=== PATIENT | male | born 1990 | race Caucasian/White ===

== ENCOUNTER 2016-09-17 07:09 | Emergency (ER) | payer OTHER ==
[2016-09-17] MEDS ORDERED: predniSONE 20 MG Tab PO ONE (07:17)
[2016-09-17] MEDS ORDERED: Loratadine 10 MG Tab PO ONE (07:18)
[2016-09-17] MEDS ORDERED: Famotidine 20 MG Tab PO ONE (07:18)
--- NOTE | 2016-09-17 08:11 | EDM.PDOC ---
ED HISTORY OF PRESENT ILLNESS - General Chief Complaint: Respiratory Problem Stated Complaint: SOB Time Seen by Provider: 09/17/16 07:14 Source of Information: Reports: Patient History Limitations: Reports: No limitations - History of Present Illness INITIAL COMMENTS - FREE TEXT/NARRATIVE: The patient presents with shortness of breath. This started about 2 hours ago while he was sitting down watching TV. He feels like his throat is swollen. He denies fever, chills, cough, congestion or runny nose. His throat may hurt but he feels like it is swollen. He has not eaten any foods that he may have reacted to. He has no allergies. He has no rash. He has no chest pain, abdominal pain, nausea or vomiting. Timing/Duration: Reports: Hour(s): (2) Severity: moderate Improves with: Reports: None Worsens with: Reports: None Associated Symptoms (General): Reports: shortness of breath. Denies: chest pain , cough, fever/chills, nausea/vomiting - Related Data Allergies/ADRs: Allergies Allergy/AdvReac Type Severity Reaction Status Date / Time No Known Allergies Allergy Verified 09/17/16 07:17 Home Meds: Home Meds Penicillin V Potassium [IJD: Penicillin V Potassium] 500 mg PO .EVERY 6 HOURS # 40 tab 09/17/16 [Rx] traMADol [Ultram] 50 - 100 mg PO Q6H PRN #20 tablet 09/17/16 [Rx] Past Medical History - Past Health History Medical/Surgical History: Denies Medical/Surgical History Social & Family History - Tobacco Use Smoking Status *Q: Never Smoker Years of Tobacco use: 4 Packs/Tins Daily: 1 Second Hand Smoke Exposure: No - Caffeine Use Caffeine Use: Reports: None - Recreational Drug Use Recreational Drug Use: No ED ROS GENERAL - Review of Systems Review Of Systems: See Below Constitutional: Reports: no symptoms HEENT: Reports: Throat pain, Throat swelling Respiratory: Reports: shortness of breath Cardiovascular: Reports: No symptoms Endocrine: Reports: no symptoms GI/Abdominal: Reports: No symptoms : Reports: no symptoms Musculoskeletal: Reports: no symptoms Skin: Reports: no symptoms Neurological: Reports: no symptoms ED EXAM, GENERAL - Physical Exam Exam: See Below Exam Limited By: No limitations General Appearance: alert, no apparent distress Ears: normal external exam Nose: normal inspection Throat/Mouth: Other (Mild erythema and mild edema of the oropharynx) Head: atraumatic, normocephalic Neck: normal inspection Respiratory/Chest: no respiratory distress, lungs clear, normal breath sounds Cardiovascular: regular rate, rhythm, no edema, no murmur GI/Abdominal: soft, non tender, no organomegaly Back Exam: normal inspection Course - Vital Signs Last Recorded V/S: Last Vital Signs Temp 97.8 F 09/17/16 07:15 Pulse 78 09/17/16 07:15 Resp 16 09/17/16 07:15 BP 142/86 H 09/17/16 07:15 Pulse Ox 96 09/17/16 07:15 - Orders/Labs/Meds Orders: Active Orders 24 hr Category Date Time Status STREP SCRN A RAPID W CULT CONF [RM] Stat Lab 09/17/16 07:19 Received Meds: Medications Discontinued Medications Generic Name Dose Route Start Last Admin Trade Name Freq PRN Reason Stop Dose Admin Famotidine 20 mg 09/17/16 07:18 09/17/16 07:25 Pepcid PO 09/17/16 07:19 20 mg ONETIME ONE Administration Loratadine 10 mg 09/17/16 07:18 09/17/16 07:25 Claritin PO 09/17/16 07:19 10 mg ONETIME ONE Administration Prednisone 40 mg 09/17/16 07:17 09/17/16 07:25 Prednisone PO 09/17/16 07:18 40 mg ONETIME ONE Administration - Re-Assessments/Exams Free Text/Narrative Re-Assessment/Exam: 09/17/16 08:10 I ordered a rapid strep that was negative, prednisone 40mg by mouth, claritin 10mg and some pepcid 20mg by mouth. 09/17/16 08:23 He still feels about the same. His strep is negative. He does have a bad tooth in the left upper jaw line. I will get him on an antibiotic for that and something for pain. Departure - Departure Time of Disposition: 08:25 Disposition: Home, Self-Care 01 Condition: good Clinical Impression: Pain, dental, Dental abscess, Edema of throat Prescriptions: Penicillin V Potassium [IJD: Penicillin V Potassium] 500 mg PO .EVERY 6 HOURS # 40 tab traMADol [Ultram] 50 - 100 mg PO Q6H PRN #20 tablet PRN Reason: Pain Referrals: Praveena Zuluaga [Physician] - 1 Week (If not better) Forms: ED Department Discharge Additional Instructions: Take claritin 10mg daily for 1 week and pepcid 20mg daily for 1 week. Take the penicillin VK for your tooth and use the ultram as needed for pain. Please return if you are worse. Follow up with Dr Zuluaga if not better in 1 week. - My Orders Last 24 Hours: My Active Orders 09/17/16 07:19 STREP SCRN A RAPID W CULT CONF [RM] Stat - Assessment/Plan Last 24 Hours: My Active Orders 09/17/16 07:19 STREP SCRN A RAPID W CULT CONF [RM] Stat
[2016-09-17 08:38] VITALS: BP 122/76
== END 2016-09-17 08:35 | disposition home or self-care (01) ==
LOC: JD.ED 07:09
DX: K04.7 Periapical abscess without sinus (principal); J39.2 Other diseases of pharynx; Z79.899 Other long term (current) drug therapy
CPT/HCPCS: 87081; 87430; 99283; A9270

== ENCOUNTER 2016-12-29 07:15 | Emergency (ER) | payer BC, OTHER ==
[2016-12-29] MEDS ORDERED: Sodium Chloride 0.9% 10 ML Syringe FLUSH PRN (07:26)
[2016-12-29] MEDS ORDERED: Aspirin 81 MG Tab.Chew PO ONE (07:26)
--- NOTE | 2016-12-29 09:31 | EDM.PDOC ---
ED HPI GENERAL MEDICAL PROBLEM - General Chief Complaint: Drug or Alcohol Abuse Stated Complaint: CHEST PAIN/RAPID HEART BEAT Time Seen by Provider: 12/29/16 07:18 Source of Information: Reports: Patient History Limitations: Reports: No Limitations - History of Present Illness INITIAL COMMENTS - FREE TEXT/NARRATIVE: The patient presents with chest pain after taking cocaine. He took the cocaine 2 hours before arrival and the pain started shortly after that. He also feels like his heart is racing. He has used in the past but it was a few years ago. He never had troubles like this before. He has a week off and partied most of the night. He does admit to drinking also. He has no shortness of breath. He has no nausea, vomiting or abdominal pain. He has no health problems such as diabetes, HTN, or hypercholesterolemia. He quit smoking a few years ago. Onset: Sudden Duration: Hour(s): Location: Reports: Chest Quality: Reports: Sharp Severity: Moderate Improves with: Reports: None Worsens with: Reports: None Context: Reports: Activity (He was up all night and took some cocaine) Associated Symptoms: Reports: Chest Pain, Shortness of Breath. Denies: Cough, Fever/Chills, Nausea/Vomiting - Related Data Allergies Allergy/AdvReac Type Severity Reaction Status Date / Time No Known Allergies Allergy Verified 09/17/16 07:17 Past Medical History - Past Health History Medical/Surgical History: Denies Medical/Surgical History Social & Family History - Tobacco Use Smoking Status *Q: Never Smoker Years of Tobacco use: 4 Packs/Tins Daily: 1 Second Hand Smoke Exposure: No - Caffeine Use Caffeine Use: Reports: Soda - Recreational Drug Use Recreational Drug Use: Yes Drug Use in Last 12 Months: Yes Recreational Drug Type: Reports: Cocaine Recreational Drug Use Frequency: Rarely ED ROS GENERAL - Review of Systems Review Of Systems: See Below Constitutional: Reports: No Symptoms HEENT: Reports: No Symptoms Respiratory: Reports: No Symptoms Cardiovascular: Reports: Chest Pain Endocrine: Reports: No Symptoms GI/Abdominal: Reports: No Symptoms : Reports: No Symptoms Musculoskeletal: Reports: No Symptoms ED EXAM, BEHAVIORAL HEALTH - Physical Exam Exam: See Below Exam Limited By: No Limitations General Appearance: Alert, No Apparent Distress Ears: Normal External Exam Nose: Normal Inspection Head: Atraumatic, Normocephalic Neck: Normal Inspection Respiratory/Chest: No Respiratory Distress, Lungs Clear, Normal Breath Sounds Cardiovascular: Regular Rate, Rhythm, No Edema, No Murmur GI/Abdominal: Soft, Non-Tender, No Organomegaly Back Exam: Normal Inspection Extremities: Normal Inspection Neurological: Alert, No Motor/Sensory Deficits, Oriented x 3 EKG INTERPRETATION EKG Date: 12/29/16 Time: 07:33 Rhythm: other (Sinus tachycardia) Rate (beats/min): 109 [place]: normal P-wave: present QRS: normal ST-T: normal QT: normal COURSE, BEHAVIORAL HEALTH COMP - Course Vital Signs: Last Vital Signs Temp 98.2 F 12/29/16 07:20 Pulse 126 H 12/29/16 07:20 Resp 22 H 12/29/16 07:20 BP 148/90 H 12/29/16 07:20 Pulse Ox 100 12/29/16 07:20 Orders, Labs, Meds: Active Orders 24 hr Category Date Time Status Cardiac Monitoring [RC] . DIRECTED Care 12/29/16 07:27 Active EKG Documentation Completion [RC] STAT Care 12/29/16 07:27 Active Peripheral IV Care [RC] . DIRECTED Care 12/29/16 07:27 Active Chest 2V [CR] Stat Exams 12/29/16 07:27 Taken Sodium Chloride 0.9% [Saline Flush] Med 12/29/16 07:26 Active 10 ml FLUSH ASDIRECTED PRN Peripheral IV Insertion Adult [OM.PC] Stat Oth 12/29/16 07:26 Ordered Medication Orders Sodium Chloride (Saline Flush) 10 ml FLUSH ASDIRECTED PRN PRN Reason: Keep Vein Open Last Admin: 12/29/16 07:45 Dose: 10 ml Laboratory Tests 12/29/16 12/29/16 12/29/16 Range/Units 07:30 07:59 07:59 WBC 14.16 H (4.23-9.07) K/mm3 RBC 5.28 (4.63-6.08) M/mm3 Hgb 16.0 (13.7-17.5) gm/L Hct 45.9 (40.1-51.0) % MCV 86.9 (79.0-92.2) fl MCH 30.3 (25.7-32.2) pg MCHC 34.9 (32.2-35.5) g/dl RDW Std Deviation 39.6 (35.1-43.9) fL Plt Count 185 (163-337) K/mm3 MPV 10.0 (9.4-12.3) fl Neut % (Auto) 84.1 H (34.0-67.9) % Lymph % (Auto) 10.7 L (21.8-53.1) % [place] % (Auto) 4.9 L (5.3-12.2) % Eos % (Auto) 0.1 L (0.8-7.0) Baso % (Auto) 0.1 (0.1-1.2) % Neut # (Auto) 11.90 H (1.78-5.38) K/mm3 Lymph # (Auto) 1.51 (1.32-3.57) K/mm3 [place] # (Auto) 0.70 (0.30-0.82) K/mm3 Eos # (Auto) 0.01 L (0.04-0.54) K/mm3 Baso # (Auto) 0.02 (0.01-0.08) K/mm3 Sodium 140 (136-145) mEq/L Potassium 3.6 (3.5-5.1) mEq/L Chloride 103 (98-107) mEq/L Carbon Dioxide 24 (21-32) mEq/L Anion Gap 16.6 H (5-15) BUN 15 (7-18) mg/dL Creatinine 1.0 (0.7-1.3) mg/dL Est Cr Clr Drug Dosing TNP Estimated GFR (MDRD) > 60 (>60) mL/min BUN/Creatinine Ratio 15.0 (14-18) Glucose 97 (74-106) mg/dL Calcium 9.3 (8.5-10.1) mg/dL Total Bilirubin 1.1 H (0.2-1.0) mg/dL AST 15 (15-37) U/L ALT 14 L (16-63) U/L Alkaline Phosphatase 82 (46-116) U/L Troponin I < 0.017 (0.00-0.056) ng/mL Total Protein 8.9 H (6.4-8.2) g/dl Albumin 5.1 H (3.4-5.0) g/dl Globulin 3.8 gm/dL Albumin/Globulin Ratio 1.3 (1-2) Urine Opiates Screen Negative (NEGATIVE) Ur Buprenorphine Scrn Negative (NEGATIVE) Ur Oxycodone Screen Negative (NEGATIVE) Urine Methadone Screen Negative (NEGATIVE) Ur Propoxyphene Screen Negative (NEGATIVE) Ur Barbiturates Screen Negative (NEGATIVE) Ur Tricyclics Screen Negative (NEGATIVE) Ur Phencyclidine Scrn Negative (NEGATIVE) Ur Amphetamine Screen Negative (NEGATIVE) U Methamphetamines Scrn Negative (NEGATIVE) U Benzodiazepines Scrn Negative (NEGATIVE) U Cocaine Metab Screen Presumptive positive H (NEGATIVE) U Marijuana (THC) Screen Negative (NEGATIVE) Ethyl Alcohol 0.02 (0.00) gm% Medications Generic Name Dose Route Start Last Admin Trade Name Freq PRN Reason Stop Dose Admin Sodium Chloride 10 ml 12/29/16 07:26 12/29/16 07:45 Saline Flush FLUSH 10 ml ASDIRECTED PRN Administration Keep Vein Open Discontinued Medications Generic Name Dose Route Start Last Admin Trade Name Freq PRN Reason Stop Dose Admin Aspirin 324 mg 12/29/16 07:26 12/29/16 07:45 Aspirin PO 12/29/16 07:27 324 mg ONETIME ONE Administration Re-Assessment/Re-Exam: I ordered an IV saline lock, EKG, CXR, labs and aspirin. His EKG shows a sinus tachycardia with no changes. His WBC was elevated at 14.16. His anion gap was slightly elevated at 16.6. His troponin was negative. His CXR looks good. He feels better. It appears to be cocaine chest pain. I will discharge him home. Departure - Departure Time of Disposition: 09:35 Disposition: Home, Self-Care 01 Condition: good Clinical Impression: Drug abuse Chest pain Qualifiers: Chest pain type: unspecified Qualified Code(s): R07.9 - Chest pain, unspecified - Discharge Information Referrals: Shari Crane PA [Physician [employer]] - 1 Week Additional Instructions: Drink plenty of fluids. Do not do cocaine. Do not take any stimulants like nicotine or caffeine. Rest today. Please return if you are worse. - My Orders Last 24 Hours: My Active Orders 12/29/16 07:26 Sodium Chloride 0.9% [Saline Flush] 10 ml FLUSH ASDIRECTED PRN Peripheral IV Insertion Adult [OM.PC] Stat 12/29/16 07:27 Cardiac Monitoring [RC] . DIRECTED EKG Documentation Completion [RC] STAT Peripheral IV Care [RC] . DIRECTED Chest 2V [CR] Stat - Assessment/Plan Last 24 Hours: My Active Orders 12/29/16 07:26 Sodium Chloride 0.9% [Saline Flush] 10 ml FLUSH ASDIRECTED PRN Peripheral IV Insertion Adult [OM.PC] Stat 12/29/16 07:27 Cardiac Monitoring [RC] . DIRECTED EKG Documentation Completion [RC] STAT Peripheral IV Care [RC] . DIRECTED Chest 2V [CR] Stat
[2016-12-29 10:08] VITALS: BP 123/73
--- NOTE | 2016-12-31 15:46 | CR ---
Chest: Two views of the chest are obtained. Comparison: Previous chest x-ray of 10/18/15. Heart size and mediastinum are normal. Lungs are clear. Bony structures are unremarkable. Impression: 1. Nothing acute is identified on two-view chest x-ray. Diagnostic code #1
== END 2016-12-29 09:48 | disposition home or self-care (01) ==
LOC: JD.ED 07:15
DX: R07.9 Chest pain, unspecified (principal); F19.10 Other psychoactive substance abuse, uncomplicated
CPT/HCPCS: 36415; 71020; 80053; 80306; 84484; 85025; 93005; 99285; A9270; G0480; J7050; 99284

== ENCOUNTER 2017-10-06 11:41 | Emergency (ER) | payer BC ==
[2017-10-06] MEDS ORDERED: Sodium Chloride 0.9% 1,000 ML IV ONE (12:28)
[2017-10-06] MEDS ORDERED: Sodium Chloride 0.9% 10 ML Syringe FLUSH PRN (12:28)
--- NOTE | 2017-10-06 12:30 | EDM.PDOC ---
ED HPI GENERAL MEDICAL PROBLEM - General Chief Complaint: Chest Pain Stated Complaint: CHEST PAIN Time Seen by Provider: 10/06/17 11:58 Source of Information: Reports: Patient History Limitations: Reports: No Limitations - History of Present Illness INITIAL COMMENTS - FREE TEXT/NARRATIVE: Patient is a 27-year-old male presents ED complaining of left lateral chest discomfort that intermittent sharp in nature and a sensation his heart is beating hard. Patient admits to drinking quite a bit of alcohol last night up until approximately 1:30 this morning. Patient awoke at 5:00 this morning with this discomfort as noted above. With admission to the ED patient has no discomfort. Feels little bit nauseated possibly hung over from last night activities. He's had no prior symptoms as such. He does note increasing pain with movement and also with taking a deep breath at times. Again this is intermittent. There is no shortness of breath associated with this. There is no abdominal pain, dizziness, presyncopal episodes, lightheadedness, or any additional complaints. Patient has no previous history of heart issues. He states one year ago though he did have some chest discomfort after taking cocaine one time. He was seen in the ED with negative workup. He has no additional past medical history and currently taking no medications. Does not smoke use recreational drugs. Alcohol use is been everyday since this past since he is off work. He has no history of DVT or PE. He has no history of GERD. Left Chest Pain Score (Numeric/FACES): 3 - Related Data Allergies Allergy/AdvReac Type Severity Reaction Status Date / Time No Known Allergies Allergy Verified 09/17/16 07:17 Home Meds: Home Meds . [No Known Home Meds] 10/06/17 [History] Past Medical History - Past Health History Medical/Surgical History: Denies Medical/Surgical History Social & Family History - Tobacco Use Smoking Status *Q: Never Smoker Years of Tobacco use: 4 Packs/Tins Daily: 1 Second Hand Smoke Exposure: No - Caffeine Use Caffeine Use: Reports: Energy Drinks - Recreational Drug Use Recreational Drug Use: No Drug Use in Last 12 Months: Yes Recreational Drug Type: Reports: Cocaine Recreational Drug Use Frequency: Rarely ED ROS GENERAL - Review of Systems Review Of Systems: See Below Constitutional: Reports: No Symptoms HEENT: Reports: No Symptoms Respiratory: Reports: Pleuritic Chest Pain (intermittent). Denies: Shortness of Breath, Wheezing, Cough, Hemoptysis Cardiovascular: Reports: Chest Pain GI/Abdominal: Reports: No Symptoms : Reports: No Symptoms Musculoskeletal: Reports: No Symptoms Skin: Reports: No Symptoms Neurological: Reports: No Symptoms ED EXAM, GENERAL - Physical Exam Exam: See Below Exam Limited By: No Limitations General Appearance: Alert, WD/WN, No Apparent Distress Eye Exam: Bilateral Eye: PERRL Ears: Hearing Grossly Normal Nose: Normal Inspection Throat/Mouth: Normal Voice, No Airway Compromise Head: Atraumatic, Normocephalic Neck: Normal Inspection, Supple, Non-Tender, Full Range of Motion Respiratory/Chest: No Respiratory Distress, Lungs Clear, Normal Breath Sounds, No Accessory Muscle Use, Chest Non-Tender, Other (Minimal pain to the left lateral chest with palpation. Intermittent pain with taking a deep breath. No swelling, rash, ecchymosis, or bony abnormalities. Some increasing pain with pushing against resistance. Suspect cause muscle skeletal in nature.) Cardiovascular: Normal Peripheral Pulses, Regular Rate, Rhythm, No Murmur Peripheral Pulses: 4+: Radial (L) GI/Abdominal: Normal Bowel Sounds, Soft, Non-Tender, No Organomegaly, No Distention Back Exam: Normal Inspection Extremities: Normal Inspection, Non-Tender, No Pedal Edema, Normal Capillary Refill Neurological: Alert, Oriented, CN II-XII Intact, Normal Cognition, No Motor/ Sensory Deficits Psychiatric: Normal Affect, Normal Mood Skin Exam: Warm, Dry, Intact, Normal Color, No Rash Course - Vital Signs Last Recorded V/S: Last Vital Signs Temp 97.9 F 10/06/17 11:49 Pulse 86 10/06/17 14:20 Resp 16 10/06/17 14:20 BP 126/59 L 10/06/17 14:20 Pulse Ox 100 10/06/17 14:20 - Orders/Labs/Meds Orders: Active Orders 24 hr Category Date Time Status EKG 12 Lead [EKG Documentation Completion] [RC] STAT Care 10/06/17 11:59 Active Peripheral IV Care [RC] . DIRECTED Care 10/06/17 12:28 Active Peripheral IV Insertion Adult [OM.PC] Routine Oth 10/06/17 12:28 Ordered Labs: Laboratory Tests 10/06/17 10/06/17 10/06/17 Range/Units 12:25 12:25 12:35 WBC 5.91 (4.23-9.07) K/mm3 RBC 5.36 (4.63-6.08) M/mm3 Hgb 16.2 (13.7-17.5) gm/L Hct 46.3 (40.1-51.0) % MCV 86.4 (79.0-92.2) fl MCH 30.2 (25.7-32.2) pg MCHC 35.0 (32.2-35.5) g/dl RDW Std Deviation 40.7 (35.1-43.9) fL Plt Count 217 (163-337) K/mm3 MPV 10.0 (9.4-12.3) fl Neut % (Auto) 70.4 H (34.0-67.9) % Lymph % (Auto) 22.7 (21.8-53.1) % [place] % (Auto) 6.1 (5.3-12.2) % Eos % (Auto) 0.2 L (0.8-7.0) Baso % (Auto) 0.3 (0.1-1.2) % Neut # (Auto) 4.16 (1.78-5.38) K/mm3 Lymph # (Auto) 1.34 (1.32-3.57) K/mm3 [place] # (Auto) 0.36 (0.30-0.82) K/mm3 Eos # (Auto) 0.01 L (0.04-0.54) K/mm3 Baso # (Auto) 0.02 (0.01-0.08) K/mm3 Sodium (136-145) mEq/L Potassium (3.5-5.1) mEq/L Chloride (98-107) mEq/L Carbon Dioxide (21-32) mEq/L Anion Gap (5-15) BUN (7-18) mg/dL Creatinine (0.7-1.3) mg/dL Est Cr Clr Drug Dosing mL/min Estimated GFR (MDRD) (>60) mL/min BUN/Creatinine Ratio (14-18) Glucose (74-106) mg/dL Calcium (8.5-10.1) mg/dL Total Bilirubin (0.2-1.0) mg/dL AST (15-37) U/L ALT (16-63) U/L Alkaline Phosphatase (46-116) U/L C-Reactive Protein (<1.0) mg/dL Total Protein (6.4-8.2) g/dl Albumin (3.4-5.0) g/dl Globulin gm/dL Albumin/Globulin Ratio (1-2) Urine Color Light yellow (Yellow) Urine Appearance Clear (Clear) Urine pH 7.5 (5.0-8.0) Ur Specific [place] 1.020 (1.005-1.030) Urine Protein Negative (Negative) Urine Glucose (UA) Negative (Negative) Urine Ketones Negative (Negative) Urine Occult Blood Negative (Negative) Urine Nitrite Negative (Negative) Urine Bilirubin Negative (Negative) Urine Urobilinogen 0.2 (0.2-1.0) Ur Leukocyte Esterase Negative (Negative) Urine RBC Not seen (0-5) /hpf Urine WBC Not seen (0-5) /hpf Ur Epithelial Cells Not seen (0-5) /hpf Urine Bacteria Few (FEW) /hpf Urine Mucus Few (FEW) /hpf Urine Opiates Screen Negative (NEGATIVE) Ur Buprenorphine Scrn Negative (NEGATIVE) Ur Oxycodone Screen Negative (NEGATIVE) Urine Methadone Screen Negative (NEGATIVE) Ur Propoxyphene Screen Negative (NEGATIVE) Ur Barbiturates Screen Negative (NEGATIVE) Ur Tricyclics Screen Negative (NEGATIVE) Ur Phencyclidine Scrn Negative (NEGATIVE) Ur Amphetamine Screen Negative (NEGATIVE) U Methamphetamines Scrn Negative (NEGATIVE) U Benzodiazepines Scrn Negative (NEGATIVE) U Cocaine Metab Screen Negative (NEGATIVE) U Marijuana (THC) Screen Negative (NEGATIVE) Ethyl Alcohol (0.00) gm% 10/06/17 10/06/17 Range/Units 12:35 12:35 WBC (4.23-9.07) K/mm3 RBC (4.63-6.08) M/mm3 Hgb (13.7-17.5) gm/L Hct (40.1-51.0) % MCV (79.0-92.2) fl MCH (25.7-32.2) pg MCHC (32.2-35.5) g/dl RDW Std Deviation (35.1-43.9) fL Plt Count (163-337) K/mm3 MPV (9.4-12.3) fl Neut % (Auto) (34.0-67.9) % Lymph % (Auto) (21.8-53.1) % [place] % (Auto) (5.3-12.2) % Eos % (Auto) (0.8-7.0) Baso % (Auto) (0.1-1.2) % Neut # (Auto) (1.78-5.38) K/mm3 Lymph # (Auto) (1.32-3.57) K/mm3 [place] # (Auto) (0.30-0.82) K/mm3 Eos # (Auto) (0.04-0.54) K/mm3 Baso # (Auto) (0.01-0.08) K/mm3 Sodium 140 (136-145) mEq/L Potassium 4.0 (3.5-5.1) mEq/L Chloride 104 (98-107) mEq/L Carbon Dioxide 27 (21-32) mEq/L Anion Gap 13.0 (5-15) BUN 8 (7-18) mg/dL Creatinine 0.9 (0.7-1.3) mg/dL Est Cr Clr Drug Dosing 120.75 mL/min Estimated GFR (MDRD) > 60 (>60) mL/min BUN/Creatinine Ratio 8.9 L (14-18) Glucose 98 (74-106) mg/dL Calcium 9.2 (8.5-10.1) mg/dL Total Bilirubin 0.9 (0.2-1.0) mg/dL AST 17 (15-37) U/L ALT 14 L (16-63) U/L Alkaline Phosphatase 72 (46-116) U/L C-Reactive Protein < 0.2 < 0.2 (<1.0) mg/dL Total Protein 8.2 (6.4-8.2) g/dl Albumin 4.7 (3.4-5.0) g/dl Globulin 3.5 gm/dL Albumin/Globulin Ratio 1.3 (1-2) Urine Color (Yellow) Urine Appearance (Clear) Urine pH (5.0-8.0) Ur Specific [place] (1.005-1.030) Urine Protein (Negative) Urine Glucose (UA) (Negative) Urine Ketones (Negative) Urine Occult Blood (Negative) Urine Nitrite (Negative) Urine Bilirubin (Negative) Urine Urobilinogen (0.2-1.0) Ur Leukocyte Esterase (Negative) Urine RBC (0-5) /hpf Urine WBC (0-5) /hpf Ur Epithelial Cells (0-5) /hpf Urine Bacteria (FEW) /hpf Urine Mucus (FEW) /hpf Urine Opiates Screen (NEGATIVE) Ur Buprenorphine Scrn (NEGATIVE) Ur Oxycodone Screen (NEGATIVE) Urine Methadone Screen (NEGATIVE) Ur Propoxyphene Screen (NEGATIVE) Ur Barbiturates Screen (NEGATIVE) Ur Tricyclics Screen (NEGATIVE) Ur Phencyclidine Scrn (NEGATIVE) Ur Amphetamine Screen (NEGATIVE) U Methamphetamines Scrn (NEGATIVE) U Benzodiazepines Scrn (NEGATIVE) U Cocaine Metab Screen (NEGATIVE) U Marijuana (THC) Screen (NEGATIVE) Ethyl Alcohol 0.01 (0.00) gm% Meds: Medications Discontinued Medications Generic Name Dose Route Start Last Admin Trade Name Freq PRN Reason Stop Dose Admin Sodium Chloride 1,000 mls @ 999 mls/hr 10/06/17 12:28 10/06/17 12:45 Normal Saline IV 10/06/17 13:28 999 mls/hr ONETIME ONE Administration Sodium Chloride 10 ml 10/06/17 12:28 10/06/17 12:35 Saline Flush FLUSH 10 ml ASDIRECTED PRN Administration Keep Vein Open - Re-Assessments/Exams Free Text/Narrative Re-Assessment/Exam: IV established with normal saline 999 mls per liter. Initial labs and studies will include CBC, chem 14, CRP, urine drug tox, serum EtOH, UA, chest x-ray, and EKG. 10/06/17 12:[address] Tracee Espino. No acute findings. EKG Sinus rhythm with no acute ST changes. 10/06/17 13:11 PERC Rule Negative. Labs reviewed:UA negative. Urine drug tox negative. Serum etoh 0.01. CBC and CMP negative for concerning symptoms. CRP WNL. 1350 Discussed results of labs and studies with patient. He is asymptomatic. No other symptoms at this point. He is ready to be discharged home. Discharge instructions as documented. Departure - Departure Time of Disposition: 14:10 Disposition: Home, Self-Care 01 Condition: Good Clinical Impression: Atypical chest pain Instructions: Chest Wall Pain, [id number], Chest Wall Pain Referrals: PCP,None [Primary Care Provider] - Forms: ED Department Discharge, ED Return to Work/School Form Additional Instructions: Refrain from any activities that cause worsening pain. Take aleve and/or tylenol for pain following the manufactures instructions. Push the fluids. Followup with PCP this coming week if symptoms persist. return to the E.D. if you develop any new or worsening symptoms. Refrain from alcohol use for the next wk. - My Orders Last 24 Hours: My Active Orders 10/06/17 11:59 EKG 12 Lead [EKG Documentation Completion] [RC] STAT 10/06/17 12:28 Peripheral IV Care [RC] . DIRECTED Peripheral IV Insertion Adult [OM.PC] Routine - Assessment/Plan Last 24 Hours: My Active Orders 10/06/17 11:59 EKG 12 Lead [EKG Documentation Completion] [RC] STAT 10/06/17 12:28 Peripheral IV Care [RC] . DIRECTED Peripheral IV Insertion Adult [OM.PC] Routine
[2017-10-06 14:54] VITALS: BP 126/59
--- NOTE | 2017-10-06 16:52 | CR ---
Chest: Portable view of the chest was obtained. Comparison: Prior chest x-ray of 12/29/16. Heart size and mediastinum are normal. Lungs are clear. Bony structures are grossly intact. Impression: 1. Nothing acute is appreciated on portable chest x-ray. Diagnostic code #1
== END 2017-10-06 14:25 | disposition home or self-care (01) ==
LOC: JD.ED 11:41
DX: R07.89 Other chest pain (principal)
CPT/HCPCS: 36415; 71045; 80053; 80306; 81001; 85025; 86140; 93005; 96360; 99285; G0480; J7040; J7050; 93010; 99283

== ENCOUNTER 2017-10-08 23:43 | Emergency (ER) | payer BC ==
[2017-10-08 23:50] VITALS: BP 162/99
--- NOTE | 2017-10-08 23:55 | EDM.PDOC ---
ED HPI GENERAL MEDICAL PROBLEM - General Chief Complaint: Chest Pain Stated Complaint: CHEST PAINS AND BACK PAIN DIZZY AND CONFUSED Time Seen by Provider: 10/08/17 23:55 Source of Information: Reports: Patient History Limitations: Reports: No Limitations - History of Present Illness INITIAL COMMENTS - FREE TEXT/NARRATIVE: 27-year-old male attends the ED with recurrence of left precordial anterior chest pains. Patient developed these in the early hours of October 06 in the have plagued him ever since. They come on intermittently at any time of the day or position. Initially worsened by exertion or deep breathing. He has not developed cough or any sputum production. Has no fever or chills. States the pain is a dull ache and then becomes very sharp and stabbing on the distribution of the left fourth rib and travels towards the left axilla. States was worse tonight when he lied down to try to sleep and he became concerned when he became confused and somewhat disoriented suggesting a significant hyperventilation state had occurred. Patient was seen on October 06. Chest x-ray and ECG carried out with no positive findings. He has not been taking any medication for this problem. Onset: Sudden Onset Date: 10/06/17 (Started after heavy drinking on October 05 in the wee hours of the morning.) Onset Time: 04:00 Duration: Intermittent, Waxing/Waning Location: Reports: Chest (Left precordial anterior chest) Quality: Reports: Ache, Dull, Sharp, Stabbing Severity: Moderate Improves with: Reports: None Worsens with: Reports: Other Context: Denies: Activity, Exercise, Lifting, Sick Contact, Trauma, Other Associated Symptoms: Reports: Confusion (Confusion tonight. Seemed to develop after hyperventilation state), Chest Pain, Shortness of Breath, Weakness ( Generalized). Denies: Cough, cough w sputum, Diaphoresis, Fever/Chills, Headaches, Loss of Appetite, Malaise, Nausea/Vomiting, Rash (Associated with the develop an of the sharp stabbing chest pain), Seizure, Syncope Treatments PERSONAL FINANCIAL REPRESENTATIVE: Reports: Other (see below) (None.) Left Chest Pain Score (Numeric/FACES): 8 - Related Data Allergies Allergy/AdvReac Type Severity Reaction Status Date / Time No Known Allergies Allergy Verified 10/08/17 23:50 Home Meds: Home Meds Diclofenac Sodium [Voltaren] 50 mg PO BID #20 tab.ec 10/09/17 [Rx] predniSONE [Deltasone] 20 mg PO ASDIRECTED #15 tablet 10/09/17 [Rx] Past Medical History - Past Health History Medical/Surgical History: Denies Medical/Surgical History Social & Family History - Tobacco Use Smoking Status *Q: Never Smoker Years of Tobacco use: 4 Packs/Tins Daily: 1 Second Hand Smoke Exposure: No - Caffeine Use Caffeine Use: Reports: None - Recreational Drug Use Recreational Drug Use: No Drug Use in Last 12 Months: Yes Recreational Drug Type: Reports: Cocaine Recreational Drug Use Frequency: Rarely - Living Situation & Occupation Living situation: Reports: Single Occupation: Student ED ROS GENERAL - Review of Systems Review Of Systems: See Below Constitutional: Reports: Weakness. Denies: Fever, Chills, Malaise, Fatigue, Decreased Appetite, Weight Loss (At onset of chest pain tonight.) Respiratory: Reports: Shortness of Breath, Other (Left precordial chest pain). Denies: Wheezing, Pleuritic Chest Pain Cardiovascular: Reports: Chest Pain (See history of present illness) Endocrine: Reports: No Symptoms GI/Abdominal: Reports: No Symptoms : Reports: No Symptoms Musculoskeletal: Reports: No Symptoms Skin: Reports: No Symptoms Neurological: Reports: Confusion, Dizziness, Numbness, Tingling (I suspect from hyperventilation syndrome in his extremities from hyperventilation syndrome) Psychiatric: Reports: No Symptoms ED EXAM, GENERAL - Physical Exam Exam: See Below Exam Limited By: No Limitations General Appearance: Alert, Anxious, Moderate Distress Eye Exam: Bilateral Eye: Normal Inspection Throat/Mouth: Normal Inspection, Normal Lips, Normal Teeth, Normal Oropharynx Head: Atraumatic, Normocephalic Neck: Normal Inspection, Supple, Non-Tender, Full Range of Motion. No: Lymphadenopathy (L), Lymphadenopathy (R) Respiratory/Chest: No Respiratory Distress, Lungs Clear, Normal Breath Sounds, No Accessory Muscle Use, Other (Does have mild chest wall tenderness on compression of the fourth rib particular anterior axillary line.) Cardiovascular: Normal Peripheral Pulses, Regular Rate, Rhythm, No Edema, No Gallop, No Murmur Peripheral Pulses: 3+: Posterior Tibial (L), Posterior Tibial (R), Dorsalis Pedis (L), Dorsalis Pedis (R) GI/Abdominal: Normal Bowel Sounds, Soft, Non-Tender, No Organomegaly EKG INTERPRETATION EKG Date: 10/08/17 Time: 23:58 Rhythm: NSR Rate (Beats/Min): 72 [place]: RAD-Right [place] Deviation (Mild right axis deviation at 96.) P-Wave: Present QRS: Other (Left ventricular hypertrophy pattern compatible with his age. Early R-wave transition again normal for age) ST-T: Normal QT: Prolonged (Mildly prolonged) EKG Interpretation Comments: Unchanged from ECG done October 06. Borderline ECG Course - Vital Signs Last Recorded V/S: Last Vital Signs Temp 37.1 C 10/08/17 23:48 Pulse 82 10/08/17 23:48 Resp 17 10/08/17 23:48 BP 162/99 H 10/08/17 23:48 Pulse Ox 99 10/08/17 23:48 - Orders/Labs/Meds Meds: Medications Discontinued Medications Generic Name Dose Route Start Last Admin Trade Name Freq PRN Reason Stop Dose Admin Indomethacin 25 mg 10/09/17 00:21 10/09/17 00:26 Indocin PO 10/09/17 00:22 25 mg ONETIME ONE Administration Lorazepam 1 mg 10/09/17 00:21 10/09/17 00:27 Ativan PO 10/09/17 00:22 1 mg ONETIME ONE Administration Prednisone 20 mg 10/09/17 00:21 10/09/17 00:27 Prednisone PO 10/09/17 00:22 20 mg ONETIME ONE Administration - Radiology Interpretation Free Text/Narrative:: 27-year-old male attends the ED with recurrence of left precordial chest pain. This is been going on for the last 3 days. He describes a dull aching discomfort in the left precordium that intermittently becomes very sharp and stabbing. This occurred when he tried to go to sleep tonight. From the history it sounds like he developed a hyperventilation syndrome became confused somewhat nauseated may be just mildly diaphoretic numb and tingling in his hands etc. This scared him that he thought it was his heart. He also [place] that his heart was beating harder in his chest. It likely was related to adrenaline surge. On examination here chest is clear to stage percussion. He has minimal left chest wall tenderness over the fourth costochondral joint and along the fourth rib suggesting a periostitis. I reviewed his chest x-ray done October 06 and it was completely normal therefore is not repeated. The repeat ECG is unchanged from the one done October 06 showing no signs of ischemia or pericarditis. Reassured at length that this is a viral infection of his chest while likely echovirus or coxsackievirus. I placed him on prednisone 20 mg twice daily for 5 days and once daily in the morning only for another 5 days and Voltaren 50 mg twice a day for 10 days to take this inflammation out of his chest wall. In the ED he received indomethacin 50 mg and prednisone 20 mg per ora. Patient reassured at length that it's not his heart that it is chest wall in origin. Follow-up with personal care physician if any further problems occur. Departure - Departure Time of Disposition: 00:22 Disposition: Home, Self-Care 01 Condition: Fair Clinical Impression: Acute chest wall pain Prescriptions: Diclofenac Sodium [Voltaren] 50 mg PO BID #20 tab.ec predniSONE [Deltasone] 20 mg PO ASDIRECTED #15 tablet Instructions: Chest Wall Pain, [id number] Referrals: PCP,None [Primary Care Provider] - Forms: ED Department Discharge Additional Instructions: Evaluation in the emergency room today in regards to recurrence of left anterior chest pain which is sharp and stabbing and also dull and aching. This is been bothering her off and on since early hours of October 06. I reviewed the chest x-ray done on October 06 and was within normal limits showing no sign of any abnormalities of your heart or lung. Also ECG done on that date was within normal limits similar heart tracing her ECG done today is completely normal as well. History and the case that you're suffering from inflammation of muscles in between the ribs of the left chest wall. The common abnormality in young people between the age of 15 and 30. It is felt to be due to a virus called echovirus or coxsackievirus which causes inflammation. It will cause intermittent sharp stabbing chest pains and then dull achy discomfort sometimes disruptive 5 or 6 weeks before it clears up. Since it is bothering her significantly my suggestion is to treat you with anti-inflammatories for the next 10 days. Suggest use of Deltasone 20 mg with breakfast and supper for 5 days and then 1 tablet in the morning only for another 5 days. Voltaren 50 mg twice daily with breakfast and supper for 10 days. He should appreciate less pain and less frequency of pain over the next 48 hours. Please complete the medication completely otherwise the pain tends to come back. If pain not completely improved after 10 days of therapy or reoccurs with significant pain and return to medical care is advised.
[2017-10-09] MEDS ORDERED: LORazepam 1 MG Tab PO ONE (00:21)
[2017-10-09] MEDS ORDERED: Indomethacin 25 MG Cap PO ONE (00:21)
[2017-10-09] MEDS ORDERED: predniSONE 20 MG Tab PO ONE (00:21)
== END 2017-10-09 00:43 | disposition home or self-care (01) ==
LOC: JD.ED 23:43
DX: R07.89 Other chest pain (principal)
CPT/HCPCS: 93005; 93010; 99283-25; 99285-25; A9270-GY

== ENCOUNTER 2017-10-17 19:27 | Emergency (ER) | payer BC ==
[2017-10-17 19:41] VITALS: BP 135/98
[2017-10-17] MEDS ORDERED: Acetaminophen 325 MG Tab PO ONE (20:14)
--- NOTE | 2017-10-17 21:59 | EDM.PDOC ---
ED HPI GENERAL MEDICAL PROBLEM - General Chief Complaint: Chest Pain Stated Complaint: LEFT SIDE CHEST PAIN/HEADACHE Time Seen by Provider: 10/17/17 19:43 Source of Information: Reports: Patient, RN Notes Reviewed - History of Present Illness INITIAL COMMENTS - FREE TEXT/NARRATIVE: 27-year-old male comes in with left anterior chest discomfort that started a couple of hours ago and then also frontal headache. He had 2 prior visits here to the ED about 2 weeks ago with left-sided chest discomfort. See those records for further details. Cardiorespiratory workup negative on both visits. His pain was felt to be chest wall related. He was put on prednisone and Voltaren and with that the discomfort did go away. He finished prednisone yesterday so also stopped Voltaren at that time. Did start getting some left anterior chest discomfort again this evening that does not radiate. Does not have any shortness of breath. No nausea vomiting. No abdominal pain. He has no history of hypertension diabetes or known coronary artery disease. Chest Pain Score (Numeric/FACES): 2 Headache Pain Score (Numeric/FACES): 6 - Related Data Allergies Allergy/AdvReac Type Severity Reaction Status Date / Time No Known Allergies Allergy Verified 10/17/17 19:37 Home Meds: Home Meds Diclofenac Sodium [Voltaren] 50 mg PO BID #20 tab.ec 10/09/17 [Rx] Diclofenac Sodium [Voltaren] 50 mg PO BID #14 tab.ec 10/17/17 [Rx] Past Medical History - Past Health History Medical/Surgical History: Denies Medical/Surgical History Social & Family History - Tobacco Use Smoking Status *Q: Never Smoker Years of Tobacco use: 4 Packs/Tins Daily: 1 Second Hand Smoke Exposure: No - Caffeine Use Caffeine Use: Reports: None - Recreational Drug Use Recreational Drug Use: No Drug Use in Last 12 Months: Yes Recreational Drug Type: Reports: Cocaine Recreational Drug Use Frequency: Rarely - Living Situation & Occupation Living situation: Reports: Single Occupation: Student ED ROS GENERAL - Review of Systems Review Of Systems: See Below Constitutional: Denies: Fever, Chills, Diaphoresis HEENT: Reports: Other (Frontal headache, frontal head "feels tight") Respiratory: Denies: Shortness of Breath, Wheezing, Pleuritic Chest Pain, Cough Cardiovascular: Reports: Chest Pain (Mild) GI/Abdominal: Denies: Abdominal Pain, Nausea, Vomiting Musculoskeletal: Denies: Neck Pain, Shoulder Pain, Arm Pain, Back Pain Skin: Reports: No Symptoms Neurological: Denies: Numbness, Tingling ED EXAM, GENERAL - Physical Exam Exam: See Below General Appearance: Alert, Anxious Eye Exam: Bilateral Eye: PERRL Ears: Normal External Exam Nose: Normal Inspection Throat/Mouth: Normal Inspection Head: Atraumatic, Other (Mild tenderness frontal forehead musculature) Neck: Supple Respiratory/Chest: No Respiratory Distress, Lungs Clear, Normal Breath Sounds, Chest Non-Tender Cardiovascular: Regular Rate, Rhythm GI/Abdominal: Soft, Non-Tender Back Exam: Normal Inspection Extremities: Normal Inspection. No: Leg Pain Neurological: Alert, Oriented, No Motor/Sensory Deficits, Other Skin Exam: Warm (Finger to nose testing normal), Dry, Normal Color EKG INTERPRETATION EKG Date: 10/17/17 Rhythm: NSR [place]: Normal P-Wave: Present QRS: Normal ST-T: Other (T-wave inversion V2, no ST elevation or depression) Course - Vital Signs Last Recorded V/S: Last Vital Signs Temp 98.0 F 10/17/17 19:37 Pulse 83 10/17/17 19:37 Resp 24 H 10/17/17 19:37 BP 135/98 H 10/17/17 19:37 Pulse Ox 100 10/17/17 19:37 - Orders/Labs/Meds Labs: Laboratory Tests 10/17/17 Range/Units 20:25 Troponin I < 0.017 (0.00-0.056) ng/mL Meds: Medications Discontinued Medications Generic Name Dose Route Start Last Admin Trade Name Magali PRN Reason Stop Dose Admin Acetaminophen 975 mg 10/17/17 20:14 10/17/17 20:19 Tylenol PO 10/17/17 20:15 975 mg NOW ONE Administration - Re-Assessments/Exams Free Text/Narrative Re-Assessment/Exam: 10/17/17 22:47 Troponin did come back negative. EKG once again not showing any sign of acute abnormality. He did take the Voltaren an hour or 2 prior to arrival and that does seem to be helping him. We've also given some Tylenol. Headache continues to be frontal much less severe at time of discharge compatible with frontal tension headache. Discharge instructions as documented. Departure - Departure Time of Disposition: 21:55 Disposition: Home, Self-Care 01 Condition: Fair Clinical Impression: Atypical chest pain, Tension headache Prescriptions: Diclofenac Sodium [Voltaren] 50 mg PO BID #14 tab.ec Instructions: Tension Headache, [id number], Nonspecific Chest Pain, Easy-to- Read Referrals: PCP,None [Primary Care Provider] - Forms: ED Department Discharge Additional Instructions: Continue the Voltaren 50 mg twice daily previously prescribed, may take Tylenol in addition 1000 mg up to 3 times daily for further headache or chest discomfort relief as needed. I do recommend follow-up [facility] next week for complete physical exam, further evaluation and treatment if needed and as indicated. I recommend Dr. Carias or Dr. Almanza, both [facility], or one of our other medical providers. Call [phone] for appointment. Return to ED as needed if symptoms worsening in any way.
== END 2017-10-17 22:10 | disposition home or self-care (01) ==
LOC: JD.ED 19:27
DX: R07.89 Other chest pain (principal); G44.209 Tension-type headache, unspecified, not intractable; Z79.899 Other long term (current) drug therapy
CPT/HCPCS: 36415; 84484; 99284; A9270; 93010; 99283-25

== ENCOUNTER 2020-02-14 17:19 | Emergency (ER) | payer BC ==
--- NOTE | 2020-02-14 18:51 | EDM.PDOC ---
<Lester Pimentel - Last Filed: 02/14/20 18:28> ED HPI GENERAL MEDICAL PROBLEM - General Chief Complaint: Genitourinary Problem Stated Complaint: BACK PAIN AND DIFFICULTY URINATING Time Seen by Provider: 02/14/20 17:32 - History of Present Illness INITIAL COMMENTS - FREE TEXT/NARRATIVE: Patient comes to the emergency department today with complaints of burning and discomfort in the shaft of his penis with frequent urination. Patient reports that he was seen in the [facility] 2 weeks ago for similar symptoms. At that time the was diagnosed with a UTI and started on Cipro regimen for 5 days. Patient took the Cipro for 3 days but stopped due to developing tendon tenderness. He followed up at the [facility] where he was retested for UTI and found to be clear. Patient had been symptom free until this morning. This morning patient developed a burning sensation in the shaft of his penis and felt the need to urinate. Patient reports that he has voided 6-7 times today. He feels as though he is able to completely empty his bladder, but as soon as he finishes he has the urge to urinate again. He also describes having pain and discomfort in his peritoneum suggesting possible prostatitis. When asked about any lower back pain, patient stated that when he went to [facility] he had experienced significant back pain at that time but it went away with after taking the Cipro. Today he has a very mild ache in his left CVA which is slightly tender on tamponed. Patient state that he is in a monogamous relationship with his girlfriend and has not had sexual intercourse with anyone else. He did confirm that he and his girlfriend have both vaginal and anal sex. Patient also did state the there may be corolation between having sex and the onset of symptoms, but this cannot be confirmed as have intercourse frequently. Patient also reported that he had urinary tract surgery at [facility] in February 2018. 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 The scar tissue is believed to have developed from an unknown childhood trauma to the groin. Patient denies fever, chills, weakness, or nausea/vomit/diarrhea at this time. Back Pain Score (Numeric/FACES): 4 - Related Data Allergies Allergy/AdvReac Type Severity Reaction Status Date / Time No Known Allergies Allergy Verified 02/14/20 17:35 Home Meds: Home Meds Sulfamethoxazole/Trimethoprim [Septra DS] 1 tab PO BID 21 Days #42 tablet 02/14/20 [Rx] Past Medical History - Past Health History Medical/Surgical History: Denies Medical/Surgical History Social & Family History - Family History Family Medical History: Noncontributory - Caffeine Use Caffeine Use: Reports: Soda - Living Situation & Occupation Living situation: Reports: Single Occupation: Student ED ROS GENERAL - Review of Systems Review Of Systems: See Below Constitutional: Reports: No Symptoms HEENT: Reports: No Symptoms Respiratory: Reports: No Symptoms Cardiovascular: Reports: No Symptoms GI/Abdominal: Reports: No Symptoms : Reports: Flank Pain ( mild left side CVA tenderness), Frequency, Urgency Musculoskeletal: Reports: No Symptoms Skin: Reports: No Symptoms Neurological: Reports: No Symptoms Psychiatric: Reports: No Symptoms ED EXAM, RENAL/ - Physical Exam Exam: See Below Exam Limited By: No Limitations General Appearance: Alert Ears: Normal External Exam, Normal Canal, Hearing Grossly Normal, Normal TMs Throat/Mouth: Normal Inspection, Normal Lips, Normal Teeth, Normal Gums, Normal Oropharynx, Normal Voice, No Airway Compromise Head: Atraumatic, Normocephalic Neck: Normal Inspection, Supple, Non-Tender, Full Range of Motion Respiratory/Chest: No Respiratory Distress, Lungs Clear, Normal Breath Sounds, No Accessory Muscle Use, Chest Non-Tender Cardiovascular: Normal Peripheral Pulses, Regular Rate, Rhythm, No Edema, No Gallop, No JVD, No Murmur, No Rub GI/Abdominal: Normal Bowel Sounds, Soft, Non-Tender, No Organomegaly, No Distention, No Abnormal Bruit, No Mass (Male) Exam: No: Scrotal Swelling, Scrotum Tenderness (L), Testicular Mass, Testicular Tenderness (L), Testicular Tenderness (R) Back Exam: Full Range of Motion, CVA Tenderness (L). No: CVA Tenderness (R) Extremities: Normal Inspection, Normal Range of Motion, Non-Tender, Normal Capillary Refill, No Pedal Edema Neurological: Alert, Oriented, CN II-XII Intact, Normal Cognition, Normal Gait, Normal Reflexes, No Motor/Sensory Deficits Psychiatric: Normal Affect, Normal Mood Departure - Departure Disposition: Home, Self-Care 01 Clinical Impression: Prostatitis Qualifiers: Prostatitis type: acute Qualified Code(s): N41.0 - Acute prostatitis - Discharge Information Prescriptions: Sulfamethoxazole/Trimethoprim [Septra DS] 1 tab PO BID 21 Days #42 tablet Instructions: Prostatitis, [id number] Referrals: PCP,None [Primary Care Provider] - Forms: ED Department Discharge Additional Instructions: You were seen in the emergency department today for frequency and burning with urination, as well as pain with having a bowel movement. Your work-up included blood work and urinalysis. The results do show you have a urinary tract infection. On exam he did have some tenderness over your prostate and with your history of pain with defecation, I feel is likely to have prostatitis which is an infection of the prostate gland. You have been started on Bactrim. Take this medication twice daily for 4 weeks. The first week of medication was dispensed our [employer]. The remaining weeks were sent electronically to [facility]. Ensure that you take this medication in its entirety. Do not stop even if you are feeling better. Recommend that you call next week to schedule an appointment to establish care with a primary care provider in the clinic. The number to do so is [phone]. Return to the ER as needed. Sepsis Event Note (ED) - Evaluation Sepsis Screening Result: No Definite Risk <Akila Aquino - Last Filed: 02/19/20 13:28> ED HPI GENERAL MEDICAL PROBLEM - General Source of Information: Reports: Patient History Limitations: Reports: No Limitations ED EXAM, RENAL/ - Physical Exam Rectal (Males) Exam: Tenderness (mild tenderness to prostate. Prostate feels slightly enlarged and firm) Course - Vital Signs Last Recorded V/S: Last Vital Signs Temp 97.4 F 02/14/20 19:19 Pulse 74 02/14/20 19:19 Resp 18 02/14/20 19:19 BP 105/76 02/14/20 19:19 Pulse Ox 100 02/14/20 19:19 - Orders/Labs/Meds Labs: Laboratory Tests 02/14/20 02/14/20 02/14/20 Range/Units 18:25 18:25 18:35 WBC 10.84 H (4.23-9.07) K/mm3 RBC 5.46 (4.63-6.08) M/mm3 Hgb 16.4 (13.7-17.5) gm/dl Hct 48.3 (40.1-51.0) % MCV 88.5 (79.0-92.2) fl MCH 30.0 (25.7-32.2) pg MCHC 34.0 (32.2-35.5) g/dl RDW Std Deviation 44.7 H (35.1-43.9) fL Plt Count 292 D (163-337) K/mm3 MPV 9.8 (9.4-12.3) fl Neut % (Auto) 77.3 H (34.0-67.9) % Lymph % (Auto) 16.8 L (21.8-53.1) % [place] % (Auto) 4.7 L (5.3-12.2) % Eos % (Auto) 0.7 L (0.8-7.0) Baso % (Auto) 0.2 (0.1-1.2) % Neut # (Auto) 8.38 H (1.78-5.38) K/mm3 Lymph # (Auto) 1.82 (1.32-3.57) K/mm3 [place] # (Auto) 0.51 (0.30-0.82) K/mm3 Eos # (Auto) 0.08 (0.04-0.54) K/mm3 Baso # (Auto) 0.02 (0.01-0.08) K/mm3 Manual Slide Review Normal smear Sodium 140 (136-145) mEq/L Potassium 3.9 (3.5-5.1) mEq/L Chloride 103 (98-107) mEq/L Carbon Dioxide 28 (21-32) mEq/L Anion Gap 12.9 (5-15) BUN 10 (7-18) mg/dL Creatinine 0.9 (0.7-1.3) mg/dL Est Cr Clr Drug Dosing 118.65 mL/min Estimated GFR (MDRD) > 60 (>60) mL/min BUN/Creatinine Ratio 11.1 L (14-18) Glucose 91 (74-106) mg/dL Calcium 9.2 (8.5-10.1) mg/dL Total Bilirubin 1.4 H (0.2-1.0) mg/dL AST 35 (15-37) U/L ALT 43 (16-63) U/L Alkaline Phosphatase 84 (46-116) U/L C-Reactive Protein < 0.2 (<1.0) mg/dL Total Protein 8.4 H (6.4-8.2) g/dl Albumin 4.6 (3.4-5.0) g/dl Globulin 3.8 gm/dL Albumin/Globulin Ratio 1.2 (1-2) Urine Color (Yellow) Urine Appearance (Clear) Urine pH (5.0-8.0) Ur Specific Peerless (1.005-1.030) Urine Protein (Negative) Urine Glucose (UA) (Negative) Urine Ketones (Negative) Urine Occult Blood (Negative) Urine Nitrite (Negative) Urine Bilirubin (Negative) Urine Urobilinogen (0.2-1.0) Ur Leukocyte Esterase (Negative) Urine RBC (0-5) /hpf Urine WBC (0-5) /hpf Ur Epithelial Cells (0-5) /hpf Urine Bacteria (FEW) /hpf Urine Mucus (FEW) /hpf C trachomatis DNA (PCR) Not detected N gonorrhoeae DNA (PCR) Not detected 02/14/20 Range/Units 18:38 WBC (4.23-9.07) K/mm3 RBC (4.63-6.08) M/mm3 Hgb (13.7-17.5) gm/dl Hct (40.1-51.0) % MCV (79.0-92.2) fl MCH (25.7-32.2) pg MCHC (32.2-35.5) g/dl RDW Std Deviation (35.1-43.9) fL Plt Count (163-337) K/mm3 MPV (9.4-12.3) fl Neut % (Auto) (34.0-67.9) % Lymph % (Auto) (21.8-53.1) % [place] % (Auto) (5.3-12.2) % Eos % (Auto) (0.8-7.0) Baso % (Auto) (0.1-1.2) % Neut # (Auto) (1.78-5.38) K/mm3 Lymph # (Auto) (1.32-3.57) K/mm3 [place] # (Auto) (0.30-0.82) K/mm3 Eos # (Auto) (0.04-0.54) K/mm3 Baso # (Auto) (0.01-0.08) K/mm3 Manual Slide Review Sodium (136-145) mEq/L Potassium (3.5-5.1) mEq/L Chloride (98-107) mEq/L Carbon Dioxide (21-32) mEq/L Anion Gap (5-15) BUN (7-18) mg/dL Creatinine (0.7-1.3) mg/dL Est Cr Clr Drug Dosing mL/min Estimated GFR (MDRD) (>60) mL/min BUN/Creatinine Ratio (14-18) Glucose (74-106) mg/dL Calcium (8.5-10.1) mg/dL Total Bilirubin (0.2-1.0) mg/dL AST (15-37) U/L ALT (16-63) U/L Alkaline Phosphatase (46-116) U/L C-Reactive Protein (<1.0) mg/dL Total Protein (6.4-8.2) g/dl Albumin (3.4-5.0) g/dl Globulin gm/dL Albumin/Globulin Ratio (1-2) Urine Color Light yellow (Yellow) Urine Appearance Slt cloudy H (Clear) Urine pH 7.0 (5.0-8.0) Ur Specific Peerless 1.020 (1.005-1.030) Urine Protein Negative (Negative) Urine Glucose (UA) Negative (Negative) Urine Ketones Negative (Negative) Urine Occult Blood 2+ H (Negative) Urine Nitrite Negative (Negative) Urine Bilirubin Negative (Negative) Urine Urobilinogen 0.2 (0.2-1.0) Ur Leukocyte Esterase 2+ H (Negative) Urine RBC 0-5 (0-5) /hpf Urine WBC 20-30 H (0-5) /hpf Ur Epithelial Cells 0-5 (0-5) /hpf Urine Bacteria Few (FEW) /hpf Urine Mucus Rare (FEW) /hpf C trachomatis DNA (PCR) N gonorrhoeae DNA (PCR) - Re-Assessments/Exams Free Text/Narrative Re-Assessment/Exam: I have reviewed and agree with the HPI, ROS, and exam as documented by Gigi, [employer] student. On further interview with the patient, he does complain of pain posterior to his scrotum with having bowel movements. He describes it as a intense, stabbing pain that resolves within a couple minutes of having the bowel movement. On rectal exam, the prostate felt slightly full, was mildly tender, and firm. There were no obvious rectal fissures or hemorrhoids present. Lab results are pending. 02/14/20 20:20 Hematology was significant for WBC slightly elevated at 10.84, but was otherwise unremarkable. Analysis showed 2+ leukocyte esterase, as well as 20-30 WBCs. GC chlamydia was negative. With patient's report of stabbing pain with defecation, as well as his tenderness and slightly enlarged prostate, I feel it is likely that he has acute prostatitis. Patient verbalized that he does not want to go back on the Cipro that he was previously prescribed because he feels that it caused tendinitis. We will opt to use Bactrim 1 tab twice daily for 4 weeks. Recommend that he follow-up in the clinic this coming week to establish care with a primary care provider for ongoing monitoring and management. He is in agreement this plan. 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 I will dispense the first week of medication through the [employer] machine. I will send the remaining 3 weeks to [facility]. Discharge instructions documented. Departure - Departure Time of Disposition: 20:33 Condition: Good - Discharge Information *PRESCRIPTION DRUG MONITORING PROGRAM REVIEWED*: No *COPY OF PRESCRIPTION DRUG MONITORING REPORT IN PATIENT CADEN: No
[2020-02-14 19:20] VITALS: BP 105/76; PULSE 74
[2020-02-14 20:13] LABS: C. TRACHOMATIS BY PCR NOT DETECTED; N. GONORRHOEAE BY PCR NOT DETECTED
== END 2020-02-14 21:03 | disposition home or self-care (01) ==
LOC: JD.ED 17:19
DX: N41.0 Acute prostatitis (principal)
CPT/HCPCS: 36415; 80053; 81001; 85025; 86140; 87086; 87491; 87591; 99283

== ENCOUNTER 2023-10-28 20:59 | Emergency (ER) | payer BC ==
[2023-10-28 21:11] VITALS: PULSE 88
[2023-10-28] MEDS: Fluorescein 1 MG Ophth Strip EYELF ONE (21:45)
[2023-10-28] MEDS: Proparacaine 0.5% Ophth Soln 15 ML Bottle EYELF ONE (21:45)
[2023-10-28] MEDS: Ciprofloxacin 0.3% Ophth Soln 5 ML Bottle EYELF ONE (22:04)
[2023-10-28 22:14] VITALS: BP 135/88
== END 2023-10-28 22:15 | disposition home or self-care (01) ==
LOC: JD.ED 20:59
DX: S05.02XA Injury of conjunctiva and corneal abrasion without foreign body, left eye, initial encounter (principal); W50.0XXA Accidental hit or strike by another person, initial encounter
CPT/HCPCS: 99283; A9270; 99282; J3490